=== PATIENT | female | born 1990 | race Caucasian/White ===

== ENCOUNTER → 2020-02-28 | Emergency (ER) | payer MEDICARE, OTHER ==
[~2020-02-28] VITALS: Ht 157.5 cm; Wt 86.2 kg
[~2020-02-28] MED LIST: KETOROLAC TROMETHAMINE 30 MG/ML VIAL IV ONE; KETOROLAC TROMETHAMINE 30 MG/ML VIAL IV STA; KETOROLAC TROMETHAMINE 60 MG/2 ML VIAL ONE; MORPHINE SULFATE 2 MG/ML SYR 1ML IV ONE; MORPHINE SULFATE INJ 4 MG/ML INJ 1ML ONE; ONDANSETRON HCL INJ 2MG/ML 2ML 2 MG/ML VIAL IV STA; SODIUM CHLORIDE 0.9% 1000ML 1,000 ML IV STA
--- NOTE | 2020-02-28 08:21 | Emergency Department Note ---
History of Present Illnes History of Present Illness Chief Complaint: Flank Pain History of Present Illness This is a 29 year old female with l flank pain and n/v since yesterday PM . Historian: Patient Arrival Mode: Car Onset (how long ago): day(s) (1) Location: L flank pain Radiation: Reports flank (Left) Severity: moderate Onset quality: sudden Duration (how long): day(s) Timing of current episode: constant Progression: worsening Chronicity: new Context: Denies recent illness, Denies recent surgery, Denies recent immobilization, Denies recent travel, Denies trauma/injury, Denies new medications, Denies hx of DVT/PE, Denies non-compliance w/ medications, Denies other Relieving factors: none Exacerbating factors: none Associated symptoms: Reports nausea/vomiting Treatments prior to arrival: none Past Medical/Family History Physician Review I have reviewed the patient's past medical and family history. Any updates have been documented here. Past Medical History Recent Fever: No Clinical Suspicion of Infectio: No New/Unexplained Change in Ment: No Past Medical History: None Past Surgical History: None, Tubal Ligation Social History Smoking Cessation: Never Smoker Alcohol Use: None Any Illegal Drug Use: No Review of Systems Review of Systems Constitutional: Reports no symptoms EENTM: Reports no symptoms Cardiovascular: Reports no symptoms Respiratory: Reports no symptoms Gastrointestinal: Reports nausea, Reports vomiting Genitourinary: Reports pain Musculoskeletal: Reports no symptoms Integumentary: Reports no symptoms Neurological: Reports no symptoms Psychological: Reports no symptoms Endocrine: Reports no symptoms Hematological/Lymphatic: Reports no symptoms Physical Exam Related Data Allergies: Coded Allergies: No Known Allergies (Unverified , 02/28/20) Triage Vital Signs Vital Signs Date Time Temp Pulse Resp B/P (MAP) Pulse Ox O2 Delivery O2 Flow Rate FiO2 02/28/20 08:16 97.4 85 24 130/104 100 Room Air Vital signs reviewed: Yes Physical Exam CONSTITUTIONAL Constitutional: Present distressed (secondary to pain) HENT HENT: Present normocephalic, Present atraumatic, Present oropharynx clear/moist, Present nose normal HENT L/R: Present left ext ear normal, Present right ext ear normal EYES Eyes: Reports PERRL, Reports conjunctivae normal NECK Neck: Present ROM normal PULMONARY Pulmonary: Present effort normal, Present breath sounds normal CARDIOVASCULAR Cardiovascular: Present regular rhythm, Present heart sounds normal, Present capillary refill normal, Present normal rate GASTROINTESTINAL Abdominal: Present left CVA tenderness GENITOURINARY Genitourinary: Present exam deferred SKIN Skin: Present warm, Present dry MUSCULOSKELETAL Musculoskeletal: Present ROM normal NEUROLOGICAL Neurological: Present alert, Present oriented x 3, Present no gross motor or sensory deficits PSYCHOLOGICAL Psychological: Present mood/affect normal, Present judgement normal Results Laboratory Lab results reviewed: Yes Laboratory comments Laboratory Tests Test 02/28/20 08:22 02/28/20 08:02 Urine Color Yellow (YELLOW) Urine Clarity Sl cloudy (CLEAR) Urine pH 8.5 (5 - 7) Urine Specific [place] 1.025 (1.010-1.025) Urine Protein Trace (NEGATIVE) Urine Glucose (UA) Negative (NEGATIVE) Urine Ketones 1+ (NEGATIVE) Urine Blood Large (NEGATIVE) Urine Nitrite Negative (NEGATIVE) Urine Bilirubin Negative (NEGATIVE) Urine Urobilinogen 0.2 mg/dL (0.2 - 1) Urine Leukocyte Esterase Negative (NEGATIVE) Urine RBC >50 /HPF (0-5) Urine WBC 6-10 /HPF (0-5) Urine Epithelial Cells Few /LPF (NONE) Urine Bacteria Few /HPF (NONE) Urine Test Negative (NEGATIVE) White Blood Count 10.87 x10e3/uL (4.8-10.8) Red Blood Count 4.81 x10e6/uL (3.6-5.1) Hemoglobin 13.0 g/dL (12.0-16.0) Hematocrit 40.3 % (34.2-44.1) Mean Corpuscular Volume 83.8 fL (81-99) Mean Corpuscular Hemoglobin 27.0 pg (28-32) Mean Corpuscular Hemoglobin Concent 32.3 g/dL (31-35) Red Cell Distribution Width 13.0 % (11.7-14.4) Platelet Count 296 x10e3/uL (140-360) Neutrophils (%) (Auto) 77.4 % (38.7-80.0) Lymphocytes (%) (Auto) 15.4 % (18.0-39.1) Monocytes (%) (Auto) 4.9 % (4.4-11.3) Eosinophils (%) (Auto) 1.1 % (0.0-6.0) Basophils (%) (Auto) 0.7 % (0.0-1.0) Neutrophils # (Auto) 8.4 (2.1-6.9) Lymphocytes # (Auto) 1.7 (1.0-3.2) Monocytes # (Auto) 0.5 (0.2-0.8) Eosinophils # (Auto) 0.1 (0.0-0.4) Basophils # (Auto) 0.1 (0.0-0.1) Absolute Immature Granulocyte (auto 0.05 x10e3/uL (0-0.1) Sodium Level 140 mmol/L (136-145) Potassium Level 3.8 mmol/L (3.5-5.1) Chloride Level 107 mmol/L (98-107) Carbon Dioxide Level 23 mmol/L (22-29) Anion Gap 13.8 mmol/L (8-16) Blood Urea Nitrogen 17 mg/dL (7-26) Creatinine 0.78 mg/dL (0.57-1.11) Estimat Glomerular Filtration Rate > 60 ML/MIN (60-) BUN/Creatinine Ratio 22 (6-25) Glucose Level 122 mg/dL (74-118) Calcium Level 9.2 mg/dL (8.4-10.2) Total Bilirubin 0.2 mg/dL (0.2-1.2) Aspartate Amino Transf (AST/SGOT) 18 IU/L (5-34) Alanine Aminotransferase (ALT/SGPT) 13 IU/L (0-55) Alkaline Phosphatase 57 IU/L (40-150) Total Protein 7.9 g/dL (6.5-8.1) Albumin 4.3 g/dL (3.5-5.0) Globulin 3.6 g/dL (2.3-3.5) Albumin/Globulin Ratio 1.2 (0.8-2.0) Imaging Imaging results reviewed: Yes Impressions [place] [address] Patient Name: AIYANA LAUGHLIN MR #: [id number] : 1990 Age/Sex: 29/F Req #: [id number] Adm Physician: Ordered by: ANDIE VAN DO Report #: [id number] Location: ER Room/Bed: Procedure: [id number] CT/CT ABDOMEN/PELVIS WO Exam Date: 02/28/20 Exam Time: 0835 REPORT STATUS: Signed EXAM: CT ABDOMEN AND PELVIS WITHOUT CONTRAST CLINICAL INDICATION: Left flank pain TECHNIQUE: CT abdomen and pelvis was performed, without IV contrast, as per department protocol. Axial, sagittal, and coronal reconstructions were obtained. IV CONTRAST: Not administered, limiting sensitivity of this exam for evaluation of solid visceral organs, vascular structures, and retroperitoneum. ORAL CONTRAST: Not administered, limiting sensitivity of this exam for evaluation of bowel, retroperitoneum, and intraabdominal fluid collections. RADIATION DOSE REDUCTION: This exam was performed according to the departmental dose-optimization program which includes automated exposure control, adjustment of the mA and/or kV according to patient size and/or use of iterative reconstruction technique. COMPARISON: None FINDINGS: LOWER CHEST: No pathologic process in imaged portion of lower chest LIVER: No pathologic process. GALLBLADDER: Unremarkable BILE DUCTS: No pathologic process. PANCREAS: No pathologic process. SPLEEN: No pathologic process. ADRENALS: No pathologic process. KIDNEYS AND URETERS: Multiple left renal calculi.Possibility of dystrophic calcification in the upper pole of the left kidney is also considered. There is no hydronephrosis or hydroureter on either side. No calculi in the right kidney. There is presence of a 6 mm calculus in the left ureter just below the L3 transverse process. There is no associated hydronephrosis or hydroureter. There are 2 small calcific densities along the course of the right ureter situated in the pelvis one measuring approximately 2 mm in the parametrial area and another measuring approximately 4 mm close to the UVJ. The 2 mm calcification is more likely to be a calculus and a 4 mm likely a phlebolith. However ureteric calculi cannot be entirely ruled out. URINARY BLADDER: No pathologic process. GASTROINTESTINAL TRACT: No pathologic process. APPENDIX: No inflammatory changes in region of appendix. LYMPH NODES: No lymphadenopathy. PERITONEUM/MESENTERY: No free air, significant free fluid, mass or fluid collection. VESSELS: No vascular abnormality. ADDITIONAL RETROPERITONEAL FINDINGS: None. REPRODUCTIVE ORGANS: No pathologic process. Status post bilateral tubal ligation. ABDOMINAL AND PELVIC GREGORY: No pathologic process. MUSCULOSKELETAL: No pathologic process. ADDITIONAL FINDINGS: None. IMPRESSION: Multiple left renal calculi. No right renal calculi. A left ureteric calculus at L3 level. 2 calcific densities along the course of the right ureter in the pelvis with at least one of those suspicious for a calculus. There is no associated hydronephrosis or hydroureter. Standardized Report: [id number]. Signed by: Fernando Spencer MD on 02/28/2020 9:11 AM Dictated By: FERNANDO SPENCER MD 0 Transcribed By: BERNICE on 02/28/20910 COPY TO: ANDIE VAN DO~ Assessment & Plan Medical Decision Making MDM Diff dx : pyelonephritis, UTI, kidney stone, diverticulitis Assessment & Plan Final Impression: (1) Kidney stone on left side Depart Disposition: HOME, SELF-CARE ANDIE VAN DO Feb 28, 2020 08:20
[2020-02-28 08:31] LABS: BASOPHILS # (AUTO) 0.1 (0.0-0.1); BASOPHILS % 0.7 % (0.0-1.0); EOSINOPHILS # (AUTO) 0.1 (0.0-0.4); EOSINOPHILS % 1.1 % (0.0-6.0); HEMATOCRIT 40.3 % (34.2-44.1); LYMPHOCYTES # (AUTO) 1.7 (1.0-3.2); LYMPHOCYTES % 15.4 % (18.0-39.1); MEAN CORPUSCULAR HGB CONC 32.3 g/dL (31-35); MEAN CORPUSCULAR VOLUME 83.8 fL (81-99); MONOCYTES # (AUTO) 0.5 (0.2-0.8); MONOCYTES % 4.9 % (4.4-11.3); NEUTROPHILS # (AUTO) 8.4 (2.1-6.9); NEUTROPHILS % 77.4 % (38.7-80.0); PLATELET COUNT 296 x10e3/uL (140-360); RED BLOOD COUNT 4.81 x10e6/uL (3.6-5.1)
[2020-02-28 08:55] LABS: ALANINE AMINOTRANSFERASE 13 IU/L (0-55); ALBUMIN 4.3 g/dL (3.5-5.0); ALBUMIN/GLOBULIN RATIO 1.2 (0.8-2.0); ALKALINE PHOSPHATASE 57 IU/L (40-150); ANION GAP 13.8 mmol/L (8-16); BLOOD UREA NITROGEN 17 mg/dL (7-26); BUN/CREATININE RATIO 22 (6-25); CALCIUM 9.2 mg/dL (8.4-10.2); CARBON DIOXIDE 23 mmol/L (22-29); CHLORIDE 107 mmol/L (98-107); CREATININE, SERUM 0.78 mg/dL (0.57-1.11); EST GLOMERULAR FILTRATION RATE > 60 ML/MIN (60-); GLUCOSE 122 mg/dL (74-118); POTASSIUM 3.8 mmol/L (3.5-5.1); SODIUM 140 mmol/L (136-145)
--- NOTE | 2020-02-28 09:14 | Diagnostic Imaging Report ---
EXAM: CT ABDOMEN AND PELVIS WITHOUT CONTRAST CLINICAL INDICATION: Left flank pain TECHNIQUE: CT abdomen and pelvis was performed, without IV contrast, as per department protocol. Axial, sagittal, and coronal reconstructions were obtained. IV CONTRAST: Not administered, limiting sensitivity of this exam for evaluation of solid visceral organs, vascular structures, and retroperitoneum. ORAL CONTRAST: Not administered, limiting sensitivity of this exam for evaluation of bowel, retroperitoneum, and intraabdominal fluid collections. RADIATION DOSE REDUCTION: This exam was performed according to the departmental dose-optimization program which includes automated exposure control, adjustment of the mA and/or kV according to patient size and/or use of iterative reconstruction technique. COMPARISON: None FINDINGS: LOWER CHEST: No pathologic process in imaged portion of lower chest LIVER: No pathologic process. GALLBLADDER: Unremarkable BILE DUCTS: No pathologic process. PANCREAS: No pathologic process. SPLEEN: No pathologic process. ADRENALS: No pathologic process. KIDNEYS AND URETERS: Multiple left renal calculi.Possibility of dystrophic calcification in the upper pole of the left kidney is also considered. There is no hydronephrosis or hydroureter on either side. No calculi in the right kidney. There is presence of a 6 mm calculus in the left ureter just below the L3 transverse process. There is no associated hydronephrosis or hydroureter. There are 2 small calcific densities along the course of the right ureter situated in the pelvis one measuring approximately 2 mm in the parametrial area and another measuring approximately 4 mm close to the UVJ. The 2 mm calcification is more likely to be a calculus and a 4 mm likely a phlebolith. However ureteric calculi cannot be entirely ruled out. URINARY BLADDER: No pathologic process. GASTROINTESTINAL TRACT: No pathologic process. APPENDIX: No inflammatory changes in region of appendix. LYMPH NODES: No lymphadenopathy. PERITONEUM/MESENTERY: No free air, significant free fluid, mass or fluid collection. VESSELS: No vascular abnormality. ADDITIONAL RETROPERITONEAL FINDINGS: None. REPRODUCTIVE ORGANS: No pathologic process. Status post bilateral tubal ligation. ABDOMINAL AND PELVIC GREGORY: No pathologic process. MUSCULOSKELETAL: No pathologic process. ADDITIONAL FINDINGS: None. IMPRESSION: Multiple left renal calculi. No right renal calculi. A left ureteric calculus at L3 level. 2 calcific densities along the course of the right ureter in the pelvis with at least one of those suspicious for a calculus. There is no associated hydronephrosis or hydroureter. Standardized Report: [id number]. Signed by: Onel Noriega MD on 02/28/2020 9:11 AM
[2020-02-28 10:16] LABS: COLOR,URINE YELLOW (YELLOW)
[2020-02-28 10:17] LABS: CLARITY,URINE SL CLOUDY (CLEAR); KETONES,URINE 1+ (NEGATIVE); LEUKOCYTE ESTERASE ,URINE NEGATIVE (NEGATIVE); NITRITE,URINE NEGATIVE (NEGATIVE); PROTEIN,URINE DIPSTICK TRACE (NEGATIVE); URINE UROBILINOGEN 0.2 mg/dL (0.2 - 1)
[2020-02-28 10:25] LABS: PREGNANCY TEST, URINE NEGATIVE (NEGATIVE)
[2020-02-28 10:27] LABS: BILIRUBIN,URINE NEGATIVE (NEGATIVE)
[2020-02-28 10:28] LABS: BACTERIA,URINE FEW /HPF; EPITHELIAL CELLS,URINE FEW /LPF; RBC,URINE >50 /HPF (0-5)
--- OUTSIDE RECORDS SUMMARY | 2020-02-28 11:57 | XMS REPORT | Continuity of Care Document ---
Author Author [facility] Organization [facility] Address [address] [place] [address] Phone Unavailable Care Team Providers Care Industrial Seamstress Name Role Phone ANDIE VAN Unavailable Problems This patient has no known problems. Allergies, Adverse Reactions, Alerts This patient has no known allergies or adverse reactions. Medications This patient has no known medications. Procedures This patient has no known procedures. Results Test Description Test Time Test Comments Results Result Comments Source CT ABDOMEN/PELVIS WO 2020-02-28 08:54:00 [facility] 1990 Sex: F [facility] [address] [place] [address] Patient Name: AIYANA LAUGHLIN MR #: [id number] : 1990 Age/Sex: 29/F Req #: [id number] [facility] Physician: Ordered by: ANDIE VAN DO Report #: [id number] Location: ER Room/Bed: Procedure: [id number] CT/CT ABDOMEN/PELVIS WO Exam Date: 02/28/20 Exam Time: 08 REPORT STATUS: Signed EXAM: CT ABDOMEN AND PELVIS WITHOUT CO NTRAST CLINICAL INDICATION: Left flank pain TECHNIQUE: CT abdomen and pelvis was performed, without IV contrast, as per department protocol. Axial, sagittal, and coronal reconstructions were obtained. IV CONTRAST: Not administered, limiting sensitivity of this exam for evaluation of solid visceral organs, vascular structures, and retroperitoneum. ORAL CONTRAST: Not administered, limiting sensitivity of this exam for evaluation of bowel, retroperitoneum, and intraabdominal fluid collections. RADIATION DOSE REDUCTION: This exam was performed according to the departmental dose- optimization program which includes automated exposure control, adjustment of the mA and/or kV according to patient size and/or use of iterative reconstruction technique. COMPARISON: None FINDINGS: LOWER CHEST: No pathologic process in imaged portion of lower chest LIVER: No pathologic process. GALLBLADDER: Unremarkable BILE DUCTS: No pathologic process. PANCREAS: No pathologic process. SPLEEN: No pathologic process. ADRENALS: No pathologic process. KIDNEYS AND URETERS: Multiple left renal calculi.Possibility of dystrophic calcification in the upper pole of the left kidney is also considered. There is no hydronephrosis or hydroureter on either side. No calculi in the right kidney. There is presence of a 6 mm calculus in the left ureter just below the L3 transverse process. There is no associated hydronephrosis or hydroureter. There are 2 small calcific densities along the course of the right ureter situated in the pelvis one measuring approximately 2 mm in the parametrial area and another measuring approximately 4 mm close to the UVJ. The 2 mm calcification is more likely to be a calculus and a 4 mm likely a phlebolith. However ureteric calculi cannot be entirely ruled out. URINARY BLADDER: No pathologic process. GASTROINTESTINAL TRACT: No pathologic process. APPENDIX: No inflammatory changes in region of appendix. LYMPH NODES: No lymphadenopathy. PERITONEUM/MESENTERY: No free air, significant free fluid, mass or fluid collection. VESSELS: No vascular abnormality. ADDITIONAL RETROPERITONEAL FINDINGS: None. REPRODUCTIVE ORGANS: No pathologic process. Status post bilateral tubal ligation. ABDOMINAL AND PELVIC GREGORY: No pathologic process. MUSCULOSKELETAL: No pathologic process. ADDITIONAL FINDINGS: None. IMPRESSION: Multiple left renal calculi. No right renal calculi. A left ureteric calculus at L3 level. 2 calcific densities along the course of the right ureter in the pelvis with at least one of those suspicious for a calculus. There is no associated hydronephrosis or hydroureter. Standardized Report: [id number]. Signed by: Fernando Spencer MD on 02/28/2020 9:11 AM Dictated By: FERNANDO SPENCER MD 0 Transcribed By: BERNICE on 02/28/20910 COPY TO: ANDIE VAN DO
== END | disposition home or self-care (01) ==
LOC: ER 08:20
DX: N20.0 Calculus of kidney (principal); M54.5 Low back pain; R11.2 Nausea with vomiting, unspecified
CPT/HCPCS: 36415; 74176; 80053; 81001; 81025; 85025; 99284; J1885 ×2; J2270; J2405; J7030

== ENCOUNTER 2020-03-26 10:21 | Emergency (ER) | payer OTHER ==
[~2020-03-26] VITALS: Ht 157.5 cm; Wt 86.2 kg
[2020-03-26] MEDS ORDERED: HYDROCODONE/APAP 5MG-325MG TAB PO ONE (11:15)
[2020-03-26] MEDS ORDERED: ACETAMINOPHEN 325 MG TAB PO ONE (11:15)
== END 2020-03-26 12:43 | disposition home or self-care (01) ==
LOC: ER 10:42
DX: J18.9 Pneumonia, unspecified organism (principal); R50.9 Fever, unspecified; R05 Cough; R06.02 Shortness of breath
CPT/HCPCS: 71045; 99283

== ENCOUNTER 2020-09-20 18:49 | Emergency (ER) | payer OTHER ==
[~2020-09-20] VITALS: Ht 157.5 cm; Wt 86.2 kg
[2020-09-20] MEDS ORDERED: ONDANSETRON HCL INJ 2MG/ML 2ML 2 MG/ML VIAL IV STA (20:29)
[2020-09-20] MEDS ORDERED: SODIUM CHLORIDE 0.9% 1000ML 1,000 ML IV STA (20:29)
[2020-09-20] MEDS ORDERED: KETOROLAC TROMETHAMINE 30 MG/ML VIAL IV STA (20:29)
[2020-09-20] MEDS ORDERED: ONDANSETRON HCL INJ 2MG/ML 2ML 2 MG/ML VIAL ONE (20:41)
[2020-09-20] MEDS ORDERED: KETOROLAC TROMETHAMINE 30 MG/ML VIAL ONE (20:41)
[2020-09-20] MEDS ORDERED: SODIUM CHLORIDE 0.9% 1000ML 1,000 ML ONE (20:41)
[2020-09-20 21:29] LABS: BASOPHILS # (AUTO) 0.1 (0.0-0.1); BASOPHILS % 0.5 % (0.0-1.0); EOSINOPHILS # (AUTO) 0.1 (0.0-0.4); HEMATOCRIT 38.3 % (34.2-44.1); HEMOGLOBIN 12.7 g/dL (12.0-16.0); LYMPHOCYTES # (AUTO) 1.8 (1.0-3.2); LYMPHOCYTES % 13.5 % (18.0-39.1); MEAN CORPUSCULAR HEMOGLOBIN 27.5 pg (28-32); MEAN CORPUSCULAR HGB CONC 33.2 g/dL (31-35); MEAN CORPUSCULAR VOLUME 83.1 fL (81-99); MONOCYTES # (AUTO) 0.7 (0.2-0.8); MONOCYTES % 5.6 % (4.4-11.3); NEUTROPHILS # (AUTO) 10.4 (2.1-6.9); NEUTROPHILS % 78.9 % (38.7-80.0); PLATELET COUNT 269 x10e3/uL (140-360); RED BLOOD COUNT 4.61 x10e6/uL (3.6-5.1)
[2020-09-20 22:09] LABS: CLARITY,URINE TURBID (CLEAR); COLOR,URINE YELLOW (YELLOW); KETONES,URINE TRACE (NEGATIVE); LEUKOCYTE ESTERASE ,URINE NEGATIVE (NEGATIVE); NITRITE,URINE NEGATIVE (NEGATIVE); PROTEIN,URINE DIPSTICK 2+ (NEGATIVE); URINE UROBILINOGEN 0.2 mg/dL (0.2 - 1)
[2020-09-20 22:12] LABS: BACTERIA,URINE FEW /HPF; EPITHELIAL CELLS,URINE FEW /LPF; RBC,URINE >50 /HPF (0-5); WBC,URINE (MAN) 0-5 /HPF (0-5)
[2020-09-20 22:23] LABS: ALBUMIN 4.1 g/dL (3.5-5.0); ALBUMIN/GLOBULIN RATIO 1.2 (0.8-2.0); ANION GAP 14.8 mmol/L (8-16); CREATININE, SERUM 0.8 mg/dL (0.57-1.11); POTASSIUM 3.8 mmol/L (3.5-5.1)
== END 2020-09-20 22:57 | disposition home or self-care (01) ==
LOC: ER 19:16
DX: M54.5 Low back pain (principal); N13.2 Hydronephrosis with renal and ureteral calculous obstruction
CPT/HCPCS: 36415; 74176; 80053; 81001; 81025; 83690; 85025; 99284; J1885; J2405; J7030

== ENCOUNTER 2024-12-29 17:27 | Emergency (ER) | payer BC, OTHER ==
[~2024-12-29] VITALS: Ht 157.5 cm; Wt 86.2 kg
[2024-12-29 17:35] VITALS: PULSE 78; RESP 19; TEMP 97.9
[2024-12-29] MEDS ORDERED: KETOROLAC TROMETHAMINE 60 MG/2 ML VIAL IM STA (17:50)
[2024-12-29] MEDS ORDERED: ONDANSETRON HCL 4 MG ORAL DISINTEGRATING TAB PO STA (17:50)
[2024-12-29] MEDS ORDERED: KETOROLAC TROMETHAMINE 30 MG/ML VIAL ONE (17:53)
[2024-12-29] MEDS ORDERED: ONDANSETRON HCL INJ 2MG/ML 2ML 2 MG/ML VIAL ONE (17:53)
[2024-12-29] MEDS ORDERED: SODIUM CHLORIDE 0.9% 1000ML 1,000 ML ONE (17:53)
[2024-12-29 18:07] LABS: BASOPHILS % 0.8 % (0.0-1.0); EOSINOPHILS % 3.1 % (0.0-6.0); LYMPHOCYTES % 38.3 % (18.0-39.1); MONOCYTES % 9.6 % (4.4-11.3); NEUTROPHILS % 48.1 % (38.7-80.0); RED CELL DISTRIBUTION WIDTH 12.2 % (11.7-14.4)
[2024-12-29] MEDS: SODIUM CHLORIDE 0.9% 1000ML 1,000 ML IV STA (18:11)
[2024-12-29] MEDS: KETOROLAC TROMETHAMINE 30 MG/ML VIAL IV STA (18:12)
[2024-12-29] MEDS: ONDANSETRON HCL INJ 2MG/ML 2ML 2 MG/ML VIAL IV STA (18:12)
[2024-12-29 18:28] LABS: EST GLOMERULAR FILTRATION RATE 116.0 ML/MIN (>=60)
[2024-12-29] MEDS: Morphine 4mg INJECTION 4 MG/ML INJ IV STA (19:25)
[2024-12-29 19:27] LABS: LEUKOCYTE ESTERASE ,URINE NEGATIVE (NEGATIVE); PROTEIN,URINE DIPSTICK 1+ (NEGATIVE); URINE UROBILINOGEN 0.2 mg/dL (0.2 - 1)
[2024-12-29] MEDS ORDERED: FLOMAX0.4 MG PO (20:49)
[2024-12-29] MEDS ORDERED: ULTRAM 50MG50 MG PO (20:49)
[2024-12-29] MEDS ORDERED: ONDANSETRON ODT4 MG PO (20:49)
[2024-12-29] MEDS ORDERED: KETOROLAC TROME10 MG PO (20:49)
[2024-12-29 21:03] VITALS: BP 119/68; PULSE 74; RESP 18; TEMP 98.6; O2SAT 98
== END 2024-12-29 21:00 | disposition home or self-care (01) ==
LOC: ER 17:36
DX: R10.32 Left lower quadrant pain (principal); N20.0 Calculus of kidney
CPT/HCPCS: 36415; 74176; 80053; 81001; 83690; 84702; 85025; 99284; J1885; J2270; J2405; J7030